=== PATIENT | female | born 1990 | race Caucasian/White ===

== ENCOUNTER 2018-07-30 07:24 | Inpatient (IN) | payer OTHER ==
[~2018-07-30] VITALS: Ht 162.6 cm; Wt 64.0 kg
--- NOTE | 2018-07-30 09:15 | PR ---
[facility] [address] [facility] [place], [place] [address] Signed Progress Notes IP Datetime Report Generated by CPN: 07/30/2018 09:15 PROGRESS NOTES: [id number] Procedures: Artificial ROM Plan: Continue present management; Anticipate Vaginal Delivery VITAL SIGNS: [id number] Vital Signs: Reviewed; Within Normal Limits EXAM: [id number] Dilatation: 4.0 Effacement: 70 Station: -3 Uterine Contractions: rare MEMBRANES: [id number] Membrane Status: Ruptured Amniotic Fluid Color: Clear ROM Note: small hole in membranes for slow release of fluid due to vertex @ -3. Patient sitting with head elevated. no cord palpated Comments: Without complaint, would like Epidural - Anesthesia called Fetus A: [id number] FHR Baseline: 140 Variability: Moderate 6-25bpm Accelerations: 15X15 Presentation: Vertex Fetus B: [id number] Signing Physician: Sameer Curtis MD Copies: ~ *Electronically Signed* 07/30/18914 SAMEER CURTIS MD PATIENT NAME: MARKOS GOLDMAN PROGRESS NOTE DATE OF : 88 PHYSICIAN: SAMEER CURTIS MD RPT #: [id number] REPORT IS CONFIDENTIAL AND NOT TO BE RELEASED WITHOUT AUTHORIZATION
--- NOTE | 2018-07-30 11:58 | PR ---
[facility] [address] [facility] [place], [place] [address] Signed Progress Notes IP Datetime Report Generated by CPN: 07/30/2018 11:58 PROGRESS NOTES: [id number] Impression: Normal progression of labor Procedures: Artificial ROM Plan: Continue present management; Anticipate Vaginal Delivery VITAL SIGNS: [id number] Vital Signs: Reviewed; Within Normal Limits EXAM: [id number] Dilatation: 6.0 Effacement: 70 Station: -3 Uterine Contractions: every 2-4 minutes MEMBRANES: [id number] Membrane Status: Ruptured Amniotic Fluid Color: Clear ROM Note: small hole in membranes for slow release of fluid due to vertex @ -3. Patient sitting with head elevated. no cord palpated Comments: Comfortable with Epidural Fetus A: [id number] FHR Baseline: 135 Variability: Moderate 6-25bpm Accelerations: 15X15 Presentation: Vertex Other Presentation: Occasional Hand plapable to patient's right Fetus B: [id number] Signing Physician: Sameer Curtis MD Copies: ~ *Electronically Signed* 07/30/18 1158 SAMEER CURTIS MD PATIENT NAME: MARKOS GOLDMAN PROGRESS NOTE DATE OF : 88 PHYSICIAN: SAMEER CURTIS MD RPT #: [id number] REPORT IS CONFIDENTIAL AND NOT TO BE RELEASED WITHOUT AUTHORIZATION
--- NOTE | 2018-07-30 13:09 | PR ---
[facility] [address] [facility] [place], [place] [address] Signed Progress Notes IP Datetime Report Generated by CPN: 07/30/2018 13:09 PROGRESS NOTES: [id number] Impression: Normal progression of labor Procedures: Artificial ROM Plan: Continue present management VITAL SIGNS: [id number] Vital Signs: Reviewed; Within Normal Limits EXAM: [id number] Dilatation: 7.0 Effacement: 70 Station: -2 Uterine Contractions: every 2-4 minutes MEMBRANES: [id number] Membrane Status: Ruptured Amniotic Fluid Color: Bloody ROM Note: small hole in membranes for slow release of fluid due to vertex @ -3. Patient sitting with head elevated. no cord palpated Comments: Comfortable with Epidural, head slightly better applied to cervix, hand no longer felt. WIll continue monitoring. Fetus A: [id number] FHR Baseline: 135 Variability: Moderate 6-25bpm Accelerations: 15X15 Presentation: Vertex Other Presentation: Occasional Hand plapable to patient's right Fetus B: [id number] Signing Physician: Sameer Curtis MD Copies: ~ *Electronically Signed* 07/30/18 1309 SAMEER CURTIS MD PATIENT NAME: MARKOS GOLDMAN PROGRESS NOTE DATE OF : 88 PHYSICIAN: SAMEER CURTIS MD RPT #: [id number] REPORT IS CONFIDENTIAL AND NOT TO BE RELEASED WITHOUT AUTHORIZATION
--- NOTE | 2018-07-31 11:15 | PR ---
[facility] [address] [place] [address] Signed PP Progress Notes Datetime Report Generated by CPN: 07/31/2018 11:15 SUBJECTIVE: [id number] Pain: Within normal limits Nausea/Vomiting: Denies Vital Signs: [id number] Vital Signs: Reviewed; Within Normal Limits Notable Details: PP Hgb/Hct = 11.4/33.1 EXAM: [id number] Abdomen/Uterus: Normal Lochia: Normal Extremities: Normal IMPRESSION/PLAN/PROCEDURES: [id number] Impression: Normal progression Plan: Discharge Procedures: None Progress Notes: Doing well, without complaint, wants to go home Signing Physician: Sameer Curtis MD Copies: ~ *Electronically Signed* 07/31/18 1115 SAMEER CURTIS MD PATIENT NAME: MARKOS GOLDMAN PROGRESS NOTE DATE OF : 88 PHYSICIAN: SAMEER CURTIS MD RPT #: [id number] REPORT IS CONFIDENTIAL AND NOT TO BE RELEASED WITHOUT AUTHORIZATION
== END 2018-07-31 16:30 | disposition home or self-care (01) | DRG 807 ==
LOC: FBC 07:24
PROVIDERS: ADMIT General Practice
PROC: 10E0XZZ Delivery of Products of Conception, External Approach (ICD-10-PCS; principal; 2018-07-30)
PROC: 0HQ9XZZ Repair Perineum Skin, External Approach (ICD-10-PCS; 2018-07-30)
PROC: 10907ZC Drainage of Amniotic Fluid, Therapeutic from Products of Conception, Via Natural or Artificial Opening (ICD-10-PCS; 2018-07-30)
PROC: 00HU33Z Insertion of Infusion Device into Spinal Canal, Percutaneous Approach (ICD-10-PCS; 2018-07-30)
PROC: 3E0R3BZ Introduction of Anesthetic Agent into Spinal Canal, Percutaneous Approach (ICD-10-PCS; 2018-07-30)
DX: O69.1XX0 Labor and delivery complicated by cord around neck, with compression, not applicable or unspecified (principal); Z37.0 Single live birth; O70.0 First degree perineal laceration during delivery; Z3A.39 39 weeks gestation of pregnancy
CPT/HCPCS: 01960; 36415; 85027; J2405; J2590; J7120